=== PATIENT | female | born 1995 | race African-American/Black ===

== ENCOUNTER 2017-09-25 11:38 | Observation (INO) | payer MEDICAID ==
[~2017-09-25] VITALS: Ht 160 cm; Wt 94.8 kg
[2017-09-25 14:00] LABS: BASOPHILS % (AUTO) 0.4 % (0.0-2.0); EOSINOPHILS # (AUTO) 0.1 K/uL (0-0.4); EOSINOPHILS % (AUTO) 1.5 % (0.0-4.0); HEMATOCRIT 37.7 % (36-48); HEMOGLOBIN 12.7 g/dL (12.0-16.0); LYMPHOCYTES # (AUTO) 1.9 K/uL (2.5-16.5); LYMPHOCYTES % (AUTO) 26.6 % (20.5-51.1); MEAN CORPUSCULAR HEMOGLOBIN 29 pg (27-31); MEAN CORPUSCULAR HGB CONC 34 g/dL (33-37); MEAN CORPUSCULAR VOLUME 87.7 fL (80-94); MONOCYTES # (AUTO) 0.7 K/uL (0.8-1.0); MONOCYTES % (AUTO) 9.7 % (1.7-9.3); NEUTROPHILS # (AUTO) 4.5 K/uL (1.8-7.7); NEUTROPHILS % (AUTO) 61.8 % (42.2-75.2); PLATELET COUNT (AUTO) 167 K/uL (140-450); RED CELL DISTRIBUTION WIDTH 13.5 % (11.6-13.7); WHITE BLOOD COUNT (AUTO) 7.2 K/uL (4.8-10.8)
[2017-09-25 15:07] LABS: CARBON DIOXIDE 26.1 mmol/L (21-32); CREATININE 0.7 mg/dL (0.6-1.3); POTASSIUM 4.1 mmol/L (3.5-5.1)
[2017-09-25 15:20] LABS: ALBUMIN 2.3 g/dL (3.4-5.0); TOTAL BILIRUBIN 0.3 mg/dL (0.0-1.0)
--- NOTE | 2017-09-25 16:43 | NUR ---
Patent Prosecution Attorney Note: I was informed by RN Sondrann patient is currently homeless and needed community resources. I met with patient at bedside. She stated she use to live with her father in a mobile home in [facility], however, she reported there is no room for her. She reported she receives about $1,000 from [employer] monthly. She said she is planning to go to a hotel upon discharge and will follow up with community resources I provided her with. She reported not having any questions nor concerns at this time.
[2017-09-27 10:01] LABS: RAPID PLASMA REAGIN REACTIVE (Non Reactiv)
== END 2017-09-25 15:00 | disposition home or self-care (01) ==
LOC: MLD 11:38
PROVIDERS: ADMIT Obstetrics & Gynecology; ATTEND Obstetrics & Gynecology
DX: O99.89 Other specified diseases and conditions complicating pregnancy, childbirth and the puerperium (principal); M54.5 Low back pain; Z3A.34 34 weeks gestation of pregnancy
CPT/HCPCS: 36415; 76805; 80053; 85025; 86592; 86703; 86886; 86900; 86901; G0378; Q0092; J7120

== ENCOUNTER 2018-07-06 13:07 | Emergency (ER) | payer MEDICAID ==
[~2018-07-06] VITALS: Ht 162.6 cm; Wt 99.8 kg
[2018-07-06 13:08] VITALS: BP 163/86
--- NOTE | 2018-07-06 13:17 | NUR ---
BIBA C/O PT TOOK SEROQUIEL AND DEPOQUIL TODAY AND FELT HER HEART RACING. PT STATES SHE DOES NOT USUALLY TAKE THOSE MEDICATIONS. PT DENIES SI. MEDHX:ANXIETY, DEPRESSION,PTSD,HTN, SEIZURE, ASTHMA MED:SEROQUEL, DEPAKOTE DENIES N/V/D; SKIN IS PINK/WARM/DRY; AAOX4 WITH EVEN AND STEADY GAIT; LUNGS CLEAR BL; HR EVEN AND REGULAR; PT DENIES ANY FEVER, CP, SOB, OR COUGH AT THIS TIME; PATIENT STATES PAIN OF 0/10 AT THIS TIME; VSS; PATIENT POSITIONED FOR COMFORT; HOB ELEVATED; BEDRAILS UP X2; BED DOWN. ER MD MADE AWARE OF PT STATUS.
[2018-07-06 14:30] VITALS: BP 163/86
--- NOTE | 2018-07-06 14:30 | NUR ---
Patient discharged with v/s stable. Written and verbal after care instructions given and explained. Patient verbalized understanding. Ambulatory with steady gait. All questions addressed prior to discharge. Advised to follow up with PMD. PT LEFT W/O SIGNED & LEFT W/O DOCUMENT FOR DC.
== END 2018-07-06 14:30 | disposition home or self-care (01) ==
LOC: MED 13:07
DX: F41.0 Panic disorder [episodic paroxysmal anxiety] (principal); F43.10 Post-traumatic stress disorder, unspecified
CPT/HCPCS: 81002; 81025; 99284